=== PATIENT | female | born 1990 | race Caucasian/White ===

== ENCOUNTER 2019-02-07 04:40 | Outpatient (CLI) | payer MEDICAID, SELFPAY ==
[2019-02-07 05:50] VITALS: BMI 43.2
[2019-02-07 06:11] LABS: Absolute Lymphocyte Count 2.33 X10^3/uL (0.83-4.51); Absolute Neutrophil Count 8.1 X10^3/uL (2.0-7.7); Basophil# 0.04 X10^3/uL; Basophil% 0.3 % (0-1); Eosinophil# 0.19 X10^3/uL; Eosinophils% 1.6 % (0-5); Hematocrit 37.7 % (37-47); Hemoglobin 12.1 g/dL (12.0-15.0); Lymphocyte # 2.33 X10^3/ul (4.0); Mean Corp Hgb Conc 32.1 g/dL (32-36); Mean Corpuscular Hgb 28.3 pg (27.0-32.0); Mean Corpuscular Volume 88.3 fL (81-99); Mean Platelet Vol. 12.1 fl (6.2-12.0); Monocyte# 0.93 X10^3/uL; NRBC Flagged by Analyzer 0 % (0-5); Neutrophil # 8.05 X10^3/uL (2.7-7.7); Neutrophil % 69.3 % (47-70); Platelet Count 182 K/mm3 (150-450); RBC Distribution Width CV 14.7 % (11.6-14.6); RBC Distribution Width SD 46.6 fl (35.1-43.9); Red Blood Count 4.27 M/mm3 (4.2-5.4); White Blood Count 11.6 K/mm3 (4.4-11.0)
[2019-02-07 06:21] LABS: International Normalized Ratio 0.9; Prothrombin Time (Protime)PT. 12.3 SECONDS (11.7-14.9)
[2019-02-07 06:22] LABS: Fibrinogen 463 mg/dl (203-444); Partial Thromboplast Time 26.9 Seconds (24.1-36.2)
[2019-02-07 06:56] LABS: Color, Urine Yellow (Yellow); Glucose, Dipstick Normal (Normal); Ketone-Dipstick 5 mg/dl (Negative); Leukocyte Esterase-Dipstick 25 /ul (Negative); Nitrite-Dipstick Negative (Negative); Occult Blood-Urine Negative /ul (Negative); Protein-Dipstick Negative (Negative); Urine Bilirubin Dipstick Negative (Negative); Urine Clarity Sl. Cloudy (Clear); Urine Urobilinogen Normal (Normal)
--- NOTE | 2019-02-07 08:17 | OB.TRI.NOTE ---
- Problem List (1) Abdominal pain affecting Status: Acute (2) 38 weeks gestation of Status: Acute (3) Primiparous Status: Acute History of Present Illness Date of Service: 02/07/19 Was patient seen by the physician?: Yes Reason For Visit: R/O LABOR History of Present Illness: Patient is a primipara at 38 weeks who presented to triage with abdominal pain. She said she had centrally located abdominal pain that started overnight that was radiating down towards her pubic bone. The pain was initially constant for about 2 hours. Now the pain has resolved. She occasionally will still feel the pain every now and then, and this pain will last a few seconds and then resolve on its own. She denies fevers, chills, nausea, vomiting, difficulty eating, diarrhea, constipation, urinary symptoms, vaginal bleeding, vaginal discharge, loss of fluid. Good movement. Allergies No Known Allergies Allergy (Verified 02/07/19 06:10) Laboratory Studies: Laboratory Tests 02/07/19 02/07/19 02/07/19 Range/Units 06:40 05:50 05:50 WBC 11.6 H (4.4-11.0) K/mm3 RBC 4.27 (4.2-5.4) M/mm3 Hgb 12.1 (12.0-15.0) g/dL Hct 37.7 (37-47) % MCV 88.3 (81-99) fL MCH 28.3 (27.0-32.0) pg MCHC 32.1 (32-36) g/dL RDW Std Deviation 46.6 H (35.1-43.9) fl RDW Coeff of Eliana 14.7 H (11.6-14.6) % Plt Count 182 (150-450) K/mm3 MPV 12.1 H (6.2-12.0) fl Immature Gran % (Auto) 0.800 (0.0-0.9) % Neut % (Auto) 69.3 (47-70) % Lymph % (Auto) 20.0 (19-41) % [place] % (Auto) 8.0 (0-10) % Eos % (Auto) 1.6 (0-5) % Baso % (Auto) 0.3 (0-1) % Absolute Neuts (auto) 8.1 H (2.0-7.7) X10^3/uL Absolute Lymphs (auto) 2.33 (0.83-4.51) X10^3/uL Nucleated RBC % 0 (0-5) % PT 12.3 (11.7-14.9) SECONDS INR 0.9 APTT 26.9 (24.1-36.2) Seconds Fibrinogen 463 H (203-444) mg/dl Urine Color Yellow (Yellow) Urine Clarity Sl. Cloudy (Clear) Urine pH 6.0 (5.0 - 8.0) Ur Specific [place] 1.020 (1.002-1.030) Urine Protein Negative (Negative) mg/dl Urine Glucose (UA) Normal (Normal) mg/dl Urine Ketones 5 H (Negative) mg/dl Urine Occult Blood Negative (Negative) /ul Urine Nitrite Negative (Negative) Urine Bilirubin Negative (Negative) mg/dL Urine Urobilinogen Normal (Normal) mg/dl Ur Leukocyte Esterase 25 H (Negative) /ul Physical Exam General: Alert, No apparent distress, - - Comfortable Abdomen: Soft, Non Tender, - - Gravid Neurological: Neuro grossly intact Cervix Dilation (cm): 1 - per RN NST - FHR Rate Baby A Baseline: 120 Variability:: Moderate Accelerations:: 15 x 15 Decelerations:: None NST Reactive:: Yes Uterine Activity:: Occasional ctx's and irritability Impression/Plan - Pain now resolved - CBC, coags, UA reviewed - NST reactive - No regular ctx's on toco - Abd exam benign - D/c home w/ follow up in the office in 2 days
== END 2019-02-07 08:15 | disposition home or self-care (01) ==
LOC: WPOUT 05:18 → WP 05:19
PROVIDERS: Family Provider Radiology Diagnostic Radiology; PCP Radiology Diagnostic Radiology; Visit Provider Obstetrics & Gynecology
DX: O26.893 Other specified pregnancy related conditions, third trimester (principal); R10.9 Unspecified abdominal pain; Z3A.38 38 weeks gestation of pregnancy
CPT/HCPCS: 81002; 85025; 85384; 85610; 85730; 99218; G0378

== ENCOUNTER 2019-02-07 21:35 | Outpatient (CLI) | payer MEDICAID, SELFPAY ==
[2019-02-07 05:50] VITALS: BMI 43.2
[2019-02-07 22:24] VITALS: BMI 43.3
--- NOTE | 2019-02-09 08:06 | OB.TRI.NOTE ---
- Problem List (1) Rectal pain Status: Acute (2) 39 weeks gestation of Status: Acute History of Present Illness Date of Service: 02/07/19 Reason For Visit: RULE OUT LABOR Date of Service: 02/07/19 Final POLINA: 02/13/19 Gestational age: 39 Weeks and 3 Days History of Present Illness: Pt presented to outside hospital with rectal pain after constipation. Her rectal pain had improved and she was transferred to our labor and delivery for further work-up. No regular contractions, vaginal bleeding, loss of fluid. Good movement. She notes a history of hemorrhoids. Allergies No Known Allergies Allergy (Verified 02/07/19 22:25) NST - FHR Rate Baby A Baseline: 135 Variability:: Moderate Accelerations:: 15 x 15 Decelerations:: Variable NST Reactive:: Yes Uterine Activity:: Occasional ctx's Impression/Plan Transferred from OSH for rectal pain w/ h/o constipation and hemorrhoids Rectal pain improved and reviewed what to use for hemorrhoids Has isolated decel on monitoring, so prolonged monitoring after Has follow up in office in 2 days
== END 2019-02-08 00:29 | disposition home or self-care (01) ==
LOC: WPOUT 21:45 → OBT 21:45
PROVIDERS: Family Provider Radiology Diagnostic Radiology; PCP Radiology Diagnostic Radiology; Referring Provider Obstetrics & Gynecology; Visit Provider Obstetrics & Gynecology
DX: O26.893 Other specified pregnancy related conditions, third trimester (principal); K62.89 Other specified diseases of anus and rectum; Z3A.39 39 weeks gestation of pregnancy
CPT/HCPCS: 59025; 59050; 81002; 85025; 85384; 85610; 85730; 94760; 99218; G0378

== ENCOUNTER 2019-02-09 17:45 | Inpatient (IN) | payer MEDICAID, SELFPAY ==
[2019-02-09 18:20] VITALS: BMI 40.1
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
[2019-02-09 18:52] LABS: ROM Internal Control Test YES-OK TO RESULT pt. (Internal QC); ROM Patient Test Negative (Negative)
[2019-02-09] MEDS: Lactated Ringers 1,000 ML 50 ML IV (19:35)
[2019-02-09 19:54] LABS: Absolute Lymphocyte Count 1.89 X10^3/uL (0.83-4.51); Absolute Neutrophil Count 7.7 X10^3/uL (2.0-7.7); Basophil# 0.03 X10^3/uL; Basophil% 0.3 % (0-1); Eosinophil# 0.06 X10^3/uL; Eosinophils% 0.6 % (0-5); Hemoglobin 12.3 g/dL (12.0-15.0); Lymphocyte # 1.89 X10^3/ul (4.0); Lymphocyte % 17.7 % (19-41); Mean Corp Hgb Conc 33.2 g/dL (32-36); Mean Corpuscular Hgb 28.4 pg (27.0-32.0); Mean Corpuscular Volume 85.5 fL (81-99); Mean Platelet Vol. 12.1 fl (6.2-12.0); Monocyte# 0.94 X10^3/uL; Monocyte% 8.8 % (0-10); NRBC Flagged by Analyzer 0 % (0-5); Neutrophil # 7.69 X10^3/uL (2.7-7.7); Platelet Count 198 K/mm3 (150-450); RBC Distribution Width CV 14.7 % (11.6-14.6); RBC Distribution Width SD 45.1 fl (35.1-43.9); Red Blood Count 4.33 M/mm3 (4.2-5.4); White Blood Count 10.7 K/mm3 (4.4-11.0)
[2019-02-09] MEDS: miSOPROStol 25 MCG TABLET PO (21:03)
[2019-02-10] MEDS: miSOPROStol 25 MCG TABLET PO (01:08)
[2019-02-10] MEDS: Nalbuphine 10 MG/ML Ampul IV (01:38)
[2019-02-10] MEDS: Lactated Ringers 500 ML 999 ML IV ×2 (02:40→05:30)
[2019-02-10] MEDS: fentaNYL-bupivacaine (epidural) 100 ML BAG EPIDURAL ×2 (06:37→10:46)
[2019-02-10] MEDS: Oxytocin 30 units/NS 500 ml 30 UNITS/500 ML IV.SOLN IV (07:20)
--- NOTE | 2019-02-10 10:18 | PCM.PN.BLA ---
Progress Note Cvx 9/100/0. AROM performed for clear-blood tinged fluid.
[2019-02-10] MEDS: Lactated Ringers 1,000 ML 200 ML IV (11:15)
[2019-02-10] MEDS: Oxytocin 30 units/NS 500 ml 30 UNITS/500 ML IV.SOLN 334 UNITS IV (12:36)
--- NOTE | 2019-02-10 12:57 | OP.PCM_ITS ---
Problem List (1) 40 weeks gestation of Status: Acute (2) Primiparous Status: Acute (3) Abdominal pain Status: Acute (4) Intellectual disability Status: Acute Report of Operation Date of Procedure: 02/10/19 Pre-Operative Diagnosis: 40 week gestation, primiparous patient, maternal discomfort, intellectual disability Post-Operative Diagnosis: As above Surgery/Procedure Performed:: Description of Surgical Findings:: Viable female infant in cephalic presentation. Meconium stained fluid. Intact and normal appearing placenta with a 3 VC. Type of Anesthesia:: Epidural Special Medications: None Specimen's removed: Placenta Drains: [place] Estimated Blood Loss (mL): 250 Description of Procedure: Patient complete and pushing. Head, anterior shoulder, posterior shoulder, followed by body were delivered without any force or delay. Viable female infant was delivered atraumatically and placed on maternal abdomen. Cord was clamped and cut after a 60 sec delay. Cord blood was obtained. Placenta was delivered with fundal massage. The placenta was noted to be intact and normal- appearing with a three-vessel cord. The uterus was explored x1. A first-degree vaginal laceration was repaired with 3-0 Vicryl in usual fashion. Fundus was firm and bleeding hemostatic. Grafts/Implants Used: None - Complications None - Admit VTE Documentation VTE Present on Admission: No Vaginal Delivery Maternal Presentation: Elective Induction Method of Induction: Pitocin, Cytotec Amniotic Membrane Rupture Type: Artificial Amniotic Fluid Description: Lightly stained meconium Surgery/ Procedure Performed: Spontaneous Vaginal Delivery Type of Anesthesia: Epidural Presentation: Vertex Placental Delivery Description: Expressed Cord Vessel Description: 3 Vessels Cord Entanglement: None A gender: Female Episiotomy Description: None Laceration: 1st degree Medications given after delivery: IV Pitocin Complications: None
[2019-02-10] MEDS: Oxytocin 10 UNITS/ML Vial IM (13:49)
[2019-02-10] MEDS: 0.9% Saline Lock 10 ML Syringe IV (13:54)
[2019-02-10 18:13] VITALS: BP 131/79; PULSE 112; RESP 18; TEMP 36.7
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
--- NOTE | 2019-02-10 18:30 | CASEMGMT ---
Social Work Consult: Concerns with transportation options for family members. Informant: Charge Nurse Met with Mother of baby (MOB), Father of baby (FOB) and maternal grandmother in room along with charge nurse as per nursing staff multiple family members were planning to stay the night as they were unable to afford gas money to drive back and forth. When charge nurse broached topic of family members staying, Maternal grandmother stating now to be planning to go home on this day and that FOB will be only family staying the night. This professor of social work attempted to provide transportation resources, but they were declined. Social work to continue to follow for complete assessment. Confirmed with nursing staff that MOB and infant to stay until Tuesday. Mary Dupree MSW, [facility]
--- NOTE | 2019-02-10 19:52 | NURSING ---
While moving pt. to new room, pt. verbalized that she was excited for a the tote because she has so many clothes for infant. Reports her dresser is full and she has a couple other boxes of clothing, reports getting them from a friend or relative. Pt. also had made statements earlier in shift when discussing different types of formula - was concerned over using Similac as she reports she was allergic to it as a baby. Also states WIC will have her using Azar formula and discussed with pt. that the different brands are similar as long as you were looking at similar types of formula. During discussion, pt. inferred that she had already purchased some of the Jasper's formula as that is what [place] will have. Pt. and FOB very excited over infant, very eager to hold and take care of her and eager to ask questions. Pt's mother was eager to show pt. and FOB how to change a diaper, and did a good job of explaining a diaper change to them, although pt. and FOB appeared fairly distracted at the time.
[2019-02-10 20:45] VITALS: BP 124/83; PULSE 116; RESP 16; TEMP 37.3
[2019-02-11 00:15] VITALS: BP 132/79; PULSE 99; RESP 20; TEMP 37.1
[2019-02-11 03:00] VITALS: BP 106/55; PULSE 102; RESP 18; TEMP 37.1
[2019-02-11] MEDS: Ibuprofen 600 MG Tablet PO ×2 (05:26→23:38)
[2019-02-11 08:00] VITALS: BP 106/57; PULSE 89; RESP 14; TEMP 36.7
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
--- NOTE | 2019-02-11 10:25 | PCM.PN.OB ---
Patient Problems: Active and Suspected Problems (Last Updated 02/09/19 @ 18:32 by Trixie Lee DO) 40 weeks gestation of (Acute) Primiparous (Acute) Abdominal pain (Acute) Intellectual disability (Acute) Subjective: Pt doing well. Pain well controlled. Ambulating and voiding without difficulty. Tolerating regular diet without nausea or vomiting. Lochia normal. She is bottlefeeding. She denies lightheadedness, dizziness, chest pain, shortness of breath, leg pain. - Physical Exam Vitals/I&O's: Vital Signs Temp Pulse Resp BP 98.0 F 89 14 106/57 L 02/11/19 08:00 02/11/19 08:00 02/11/19 08:00 02/11/19 08:00 Oxygen Delivery Method Room Air Weight: 249 lb Body Mass Index (BMI) 40.1 Intake and Output for Last 24 Hours 02/09/19 02/10/19 02/11/19 23:59 23:59 23:59 Intake Total 3034.01 / 3034.01 Output Total 1000 / 1000 200 / 200 Balance 2034.01 / 2034.01 -200 / -200 General: Alert, No apparent distress HEENT: Atraumatic Abdomen: Soft, Non Tender, - - FF@U-1 Extremities: No edema, No Calf Tenderness Skin: No rashes Neurological: Neuro grossly intact Current Medications Acetaminophen (Tylenol) 1,000 mg PO Q8H PRN PRN PRN Reason: Pain Score 1-3/10 Bisacodyl (Dulcolax) 10 mg RECTAL UD PRN PRN Reason: If no BM Dibucaine (Dibucaine) 1 applic TOPICAL TID PRN PRN; Protocol PRN Reason: Discomfort Hydrocortisone (Hytone) 1 applic TOPICAL TID PRN PRN; Protocol PRN Reason: Discomfort Ibuprofen (Motrin) 600 mg PO Q6H PRN PRN PRN Reason: Pain Score 1-3/10 Last Admin: 02/11/19 05:26 Dose: 600 mg Documented by: Methylergonovine Maleate (Methergine) 0.2 mg IM X1 PRN PRN Reason: Excess bleeding/uterine atony Ondansetron HCl (Zofran) 4 mg IV Q4H PRN PRN PRN Reason: Nausea Oxytocin (Pitocin) 10 units IM X1 HEMANTH Last Admin: 02/10/19 13:49 Dose: 10 units Documented by: Senna/Docusate Sodium (Senokot-S, Kaitlin-Colace) 1 - 2 tablet PO DAILY PRN PRN PRN Reason: Constipation Simethicone (Mylicon) 80 mg PO PCHS PRN PRN Reason: Indigestion/Stomach pain Sodium Chloride () 5 - 15 ml IV UD PRN PRN Reason: SALINE FLUSH Last Admin: 02/10/19 13:54 Dose: 10 ml Documented by: Medical Necessity - Tobacco Use Smoking Status: Never smoker Assessment/Plan All Active Problems (Last Updated 02/09/19 @ 18:32 by Trixie Lee DO) Abdominal pain affecting (Acute) 38 weeks gestation of (Acute) Primiparous (Acute) Rectal pain (Acute) 39 weeks gestation of (Acute) 40 weeks gestation of (Acute) Primiparous (Acute) Abdominal pain (Acute) Intellectual disability (Acute) PPD#1 s/p - Doing well - Bottle feeding - Social work consult - Dispo: Routine care. Anticipate d/c home tomorrow
[2019-02-11 11:55] VITALS: BP 124/75; PULSE 75; RESP 14; TEMP 36.9
[2019-02-11 20:00] VITALS: BP 118/81; PULSE 91; RESP 16; TEMP 36.8
[2019-02-12 02:00] VITALS: BP 119/80; PULSE 70; RESP 16; TEMP 37.2
[2019-02-12 08:00] VITALS: BP 123/79; PULSE 87; RESP 24; TEMP 36.4
--- NOTE | 2019-02-12 08:23 | PCM.PN.OB ---
Patient Problems: Active and Suspected Problems (Last Updated 02/09/19 @ 18:32 by Trixie Lee DO) 40 weeks gestation of (Acute) Primiparous (Acute) Abdominal pain (Acute) Intellectual disability (Acute) Subjective: Seen at bedside, doing well. Patient reports good pain control. Lochia mild. Voiding without difficulty. Bottlefeeding. - Physical Exam Vitals/I&O's: Vital Signs Temp Pulse Resp BP 98.9 F 70 16 119/80 02/12/19 02:00 02/12/19 02:00 02/12/19 02:00 02/12/19 02:00 Oxygen Delivery Method Room Air Weight: 112.945 kg Body Mass Index (BMI) 40.1 Intake and Output for Last 24 Hours 02/10/19 02/11/19 02/12/19 23:59 23:59 23:59 Intake Total 3034.01 / 3034.01 Output Total 1000 / 1000 200 / 200 Balance 2034.01 / 2034.01 -200 / -200 General: Alert, Oriented x3 Abdomen: Soft, Non Tender, Non-Distended, - - fundus firm Extremities: No Calf Tenderness Current Medications Acetaminophen (Tylenol) 1,000 mg PO Q8H PRN PRN PRN Reason: Pain Score 1-3/10 Bisacodyl (Dulcolax) 10 mg RECTAL UD PRN PRN Reason: If no BM Dibucaine (Dibucaine) 1 applic TOPICAL TID PRN PRN; Protocol PRN Reason: Discomfort Hydrocortisone (Hytone) 1 applic TOPICAL TID PRN PRN; Protocol PRN Reason: Discomfort Ibuprofen (Motrin) 600 mg PO Q6H PRN PRN PRN Reason: Pain Score 1-3/10 Last Admin: 02/11/19 23:38 Dose: 600 mg Documented by: Methylergonovine Maleate (Methergine) 0.2 mg IM X1 PRN PRN Reason: Excess bleeding/uterine atony Ondansetron HCl (Zofran) 4 mg IV Q4H PRN PRN PRN Reason: Nausea Oxytocin (Pitocin) 10 units IM X1 HEMANTH Last Admin: 02/11/19 20:51 Dose: Not Given Documented by: Senna/Docusate Sodium (Senokot-S, Kaitlin-Colace) 1 - 2 tablet PO DAILY PRN PRN PRN Reason: Constipation Simethicone (Mylicon) 80 mg PO PCHS PRN PRN Reason: Indigestion/Stomach pain Sodium Chloride () 5 - 15 ml IV UD PRN PRN Reason: SALINE FLUSH Last Admin: 02/10/19 13:54 Dose: 10 ml Documented by: Medical Necessity - Tobacco Use Smoking Status: Never smoker Assessment/Plan All Active Problems (Last Updated 02/09/19 @ 18:32 by Trixie Lee DO) Abdominal pain affecting (Acute) 38 weeks gestation of (Acute) Primiparous (Acute) Rectal pain (Acute) 39 weeks gestation of (Acute) 40 weeks gestation of (Acute) Primiparous (Acute) Abdominal pain (Acute) Intellectual disability (Acute) PPD#2, doing well routine care pain mgmt social work consult prior to dc home
--- NOTE | 2019-02-12 08:28 | DCINST_ITS ---
Discharge Diet: No Restrictions Discharge Activity: Return to Normal Activity, May not drive while taking narcotic pain medications., May Shower May resume sexual activity in: 4-6 weeks Additional Activity Instructions:: Nothing in the vagina for 4-6 weeks. You may return to work/school in 6 weeks. Call your doctor if your incision/area has: Continuous Slow Oozing, Sudden Increased Bleeding, Increased Pain/ Swelling, Increased Redness, Foul Smelling Discharge Additional Instructions: If you experience any of the following, contact your healthcare provider. * Bleeding that soaks a pad every hour for 2 hours * Fever 100.4 or higher * Unrelieved incision or abdominal pain * Swelling, redness, discharge or bleeding from your incision or episiotomy site * Your incision begins to separate * Problems urinating (including inability to urinate or burning while urinating). * Visual changes * Severe headache * Flu-like symptoms * Pain or redness in one of both of your breasts * Pain, warmth, tenderness or swelling in your legs, especially the calf area * Frequent nausea and vomiting * Symptoms of depression or anxiety If you experience any of the following, call 911 or go to the nearest Emergency Room. * Chest pain * Problems breathing * Seizure activity * Partial or complete paralysis of a body part, slurred speech, weakness or drooping of the face, or a sudden inability to walk or hold your balance Allergies/Adverse Reactions: Allergies No Known Allergies Allergy (Verified 02/09/19 19:14) Medications to take at Discharge Albuterol Aerosols [Ventolin Aerosols] 2.5 mg INHALATION Q6H PRN PRN 02/07/19 Docosahexanoic Acid [ Dha] 200 mg PO DAILY 02/07/19 Ibuprofen [Motrin] 600 mg PO Q6H PRN PRN #30 tab 02/12/19 The following prescriptions were given: Ibuprofen [Motrin] 600 mg PO Q6H PRN PRN #30 tab PRN Reason: Pain Score 1-310 Transmission Status: Pending to [facility]/pharmacy #[id number] When: Call to make an appointment with your doctor in 1-2 weeks and then in 6 weeks. Please Follow Up With: Trixie Lee DO Primary Care Physician: Obdulia Foote MD [Primary Care Provider] - Test Results: Test results from this visit will be discussed in further detail at your follow- up appointment, if applicable.
[2019-02-12 14:30] VITALS: BP 127/85; PULSE 98; RESP 16; TEMP 37.5
== END 2019-02-12 14:35 | disposition home or self-care (01) | DRG 560 ==
PROVIDERS: Admitting Provider Obstetrics & Gynecology; Family Provider Radiology Diagnostic Radiology; PCP Radiology Diagnostic Radiology; Referring Provider Obstetrics & Gynecology; Visit Provider Obstetrics & Gynecology
DX: O48.0 Post-term pregnancy (principal); Z3A.40 40 weeks gestation of pregnancy; O77.0 Labor and delivery complicated by meconium in amniotic fluid; O71.4 Obstetric high vaginal laceration alone; O99.344 Other mental disorders complicating childbirth; F79 Unspecified intellectual disabilities; O26.893 Other specified pregnancy related conditions, third trimester; K62.89 Other specified diseases of anus and rectum; Z37.0 Single live birth
CPT/HCPCS: 36415; 59025; 59050; 81002; 84112; 85025; 85384; 85610; 85730; 86850; 86900; 86901; 94760; 99218; J7120; A4216; G0378

== ENCOUNTER 2019-04-18 16:52 | Observation (INO) | payer MEDICAID, SELFPAY ==
[2019-04-18 16:53] VITALS: BP 119/76; PULSE 72; RESP 15; TEMP 37; O2SAT 100; BMI 42.0
--- NOTE | 2019-04-18 16:55 | NURSING ---
NO OLD EKGS
--- NOTE | 2019-04-18 17:31 | EKG12_ITS ---
Test Reason : CP Blood Pressure : / mmHG Vent. Rate : 074 BPM Atrial Rate : 074 BPM P-R Int : 110 ms QRS Dur : 084 ms QT Int : 390 ms P-R-T Axes : 059 067 044 degrees QTc Int : 432 ms Sinus rhythm with sinus arrhythmia with short NC Otherwise normal ECG Confirmed by CYNTHIA NICHOLS, LEIA ([id number]), editor news HARISH GARCIA ([id number]) on 05/02/2019 9:49:27 AM Referred By: ALDEN Confirmed By:LEIA MARIE MD
[2019-04-18 18:04] VITALS: BP 129/86; PULSE 59; RESP 12; O2SAT 100
--- NOTE | 2019-04-18 18:18 | US_ITS ---
STUDY: ABDOMINAL ULTRASOUND - RIGHT UPPER QUADRANT REASON FOR VISIT: Female, 28 years old RUQ PAIN RADIATES TO CHEST AND BACK TECHNIQUE: Ultrasound evaluation of the right upper quadrant was performed with real-time and static sorenson-scale imaging. TECHNICAL QUALITY: Adequate. COMPARISON: None. FINDINGS: Liver: The liver measures 17.7 cm. There is normal echogenicity of the liver. The bile ducts are within normal limits. There is hepatic color flow. The direction of portal flow is hepatopetal. There is no demonstrated mass lesion. Gallbladder: Normal distended gallbladder. The gallbladder wall measures 3 mm. There is a negative sonographic Foote''s sign. There is mild pericholecystic fluid. There are gallstones. Common Bile Duct (C.B.D.): The common bile duct measures 7 mm. Pancreas: Normal size of the head, body and tail of the pancreas. There is normal echogenicity of the pancreas. There is no demonstrated pancreatic mass or cyst. Right Kidney: Normal size of the right kidney. The right kidney measures 9.6 x 4.3 x 3.9 cm. Normal renal cortex. The right cortex measures 1.1 cm. There is no demonstrated renal mass or cyst. There is no right hydronephrosis. US/Gallbladder IMPRESSION: Cholelithiasis. Trace pericholecystic fluid. Borderline common bile duct. Electronically Signed: Herber Johnson DO at 19:08 EST Tel [phone], Service support ,
[2019-04-18] MEDS: Ondansetron 4 MG/2 ML Vial IV (18:31)
[2019-04-18 18:48] LABS: Absolute Lymphocyte Count 1.12 X10^3/uL (0.83-4.51); Absolute Neutrophil Count 5.5 X10^3/uL (2.0-7.7); Basophil# 0.04 X10^3/uL; Basophil% 0.6 % (0-1); Eosinophil# 0.05 X10^3/uL; Eosinophils% 0.7 % (0-5); Hematocrit 45.8 % (37-47); Hemoglobin 14.2 g/dL (12.0-15.0); Lymphocyte # 1.12 X10^3/ul (4.0); Lymphocyte % 15.8 % (19-41); Mean Corpuscular Hgb 27.2 pg (27.0-32.0); Mean Corpuscular Volume 87.7 fL (81-99); Mean Platelet Vol. 11.6 fl (6.2-12.0); Monocyte# 0.35 X10^3/uL; Monocyte% 4.9 % (0-10); NRBC Flagged by Analyzer 0 % (0-5); Neutrophil # 5.52 X10^3/uL (2.7-7.7); Neutrophil % 77.9 % (47-70); Platelet Count 269 K/mm3 (150-450); RBC Distribution Width CV 14.3 % (11.6-14.6); Red Blood Count 5.22 M/mm3 (4.2-5.4); White Blood Count 7.1 K/mm3 (4.4-11.0)
--- NOTE | 2019-04-18 18:51 | ED.RN ---
DUE TO PT RATING PAIN 2/10 SHE DID NOT WANT MORPHINE AT THIS TIME.
[2019-04-18 19:00] VITALS: BP 112/75; PULSE 87; RESP 19; O2SAT 97
[2019-04-18 19:05] LABS: AST(SGOT) 185 U/L (15-37); Alanine Aminotransfer ALT/SGPT 172 U/L (13-56); Albumin, Serum 3.4 g/dL (3.2-5.0); Alkaline Phosphatase 213 U/L (45-117); Anion Gap 5 (5-15); BUN 11 mg/dL (7-18); BUN/Creat Ratio 12.1 RATIO (10-20); Bilirubin, Direct 0.61 mg/dL (0.00-0.30); Calcium,Total 9.5 mg/dL (8.5-10.1); Chloride 107 mmol/L (98-107); Creatinine, Serum 0.91 mg/dL (0.55-1.02); EST Glomerular Filtration Rate 79 mL/min (>60); Est Glom Filt Rate - Afr Amer 96 mL/min (>60); Globulin 4.2 g/dL (2.2-4.2); Glucose 116 mg/dL (74-106); Lipase 192 U/L (73-393); Protein, Total 7.6 g/dL (6.4-8.2); Sodium Level 140 mmol/L (136-145)
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
--- NOTE | 2019-04-18 20:00 | DCINST_ITS ---
Discharge Diet: Light diet - advance as tolerated - if you have questions about your diet instructions, please talk to you doctor. Discharge Activity: May Not Drive - for 1 week or while taking narcotic pain medicine. May shower in (days): 1 Lifting Restrictions: 10 pounds Call your doctor if your incision/area has: Continuous Slow Oozing, Sudden Increased Bleeding, Increased Pain/ Swelling, Increased Redness, Foul Smelling Discharge Call your doctor if you observe: Fever of 101 or Higher Suture Line Care: Avoid Pulling/Pushing, Avoid Pinching/Bending Additional Dressing/Incision Instructions:: Change or remove dressing in 4 days. Leave steri-strips in place for 1 week. Allergies/Adverse Reactions: Allergies No Known Allergies Allergy (Verified 04/18/19 18:09) Medications to take at Discharge Albuterol Aerosols [Ventolin Aerosols] 2.5 mg INHALATION Q6H PRN PRN 02/07/19 Docosahexanoic Acid [ Dha] 200 mg PO DAILY 02/07/19 Ibuprofen [Motrin] 600 mg PO Q6H PRN PRN #30 tab 02/12/19 Famotidine 40 mg PO DAILY 04/18/19 Primary Care Physician: Obdulia Foote MD [Primary Care Provider] - Test Results: Test results from this visit will be discussed in further detail at your follow- up appointment, if applicable. Please Follow Up With: Roman Domingo MD - [phone] When: Call to make an appointment to be seen in about 10 days.
--- NOTE | 2019-04-18 20:07 | ED.VISSUMM ---
- ER Visit Summary Date of Service: 04/18/19 Chief Complaint: Chest pain, back pain History of Present Illness: The patient is a 28 F who presents with chest and back pain. She said this for about 8 hours. She describes sharp pains in the middle part of her chest and wraps around the right side to her back. Nothing makes it better or worse. She has felt nausea and lightheaded. She has had this for months but it is worse today. Family is concerned about her gallbladder. She denies any history of abdominal surgeries in the past. She takes no blood thinning medications. Physical Examination: Vital signs reviewed. HEENT exam unremarkable. Heart is regular rate and rhythm without murmurs. Lungs are clear to auscultation. Abdomen is soft with tenderness in the right upper quadrant. There is no guarding or rebound tenderness. Extremities reveal no edema. Skin exam normal. Neurologic exam normal. Test Results: White blood cell count normal. Glucose 116. ALT 172, AST 185. Total bilirubin 0.9, direct bilirubin 0.61. Right upper quadrant ultrasound reveals cholelithiasis with trace pericholecystic fluid. Common bile duct is 7 mm. Emergency Department Course and Treatment: The patient was given morphine and Zofran with improvement of symptoms. I do have a concern for acute cholecystitis. I discussed with Dr. Domingo and he will evaluate the patient for admission. I will give her a dose of IV Zosyn Treatment Plan: [] Disposition: Admit Impression: Acute cholecystitis This note was generated with [employer] dictation software. It may contain incorrect words, spelling, and punctuation that were not noted in review of the chart prior to signing ED Disposition - Plan for ED Patient: Referrals: Obdulia Foote MD [Primary Care Provider] -
[2019-04-18 21:20] VITALS: RESP 20; BMI 35.4; BMI 35.5
[2019-04-18 22:00] VITALS: BP 118/77; PULSE 64; RESP 20; TEMP 36.5; O2SAT 94
[2019-04-18] MEDS: Lactated Ringers 1,000 ML 100 ML IV (22:00)
[2019-04-18 23:08] LABS: Internal QC Validated? YES +Cl - CLEAR BKGD; Pregnancy, Serum, hCG Quali. NEGATIVE Negative
[2019-04-18] MEDS: Enoxaparin 40 MG/0.4 ML Syringe SC (23:21)
[2019-04-19] VITALS (18 sets, daily range): BP systolic 103–141; BP diastolic 60–95; PULSE 49–74; RESP 16; TEMP 36.1–36.8; O2SAT 92–100; BMI 35.4
--- NOTE | 2019-04-19 05:35 | PN.SURG_ITS ---
Subjective: Patient sleeping soundly. Denies pain this morning - Physical Exam Vitals/I&O's: Vital Signs Temp Pulse Resp BP Pulse Ox 97.5 F L 53 L 16 107/60 98 04/19/19 03:47 04/19/19 03:47 04/19/19 03:47 04/19/19 03:47 04/19/19 03:47 Oxygen Delivery Method Room Air Weight: 219 lb 12.814 oz Body Mass Index (BMI) 35.4 Intake and Output for Last 24 Hours 04/17/19 04/18/19 04/19/19 23:59 23:59 23:59 Intake Total 100 / 120 Balance 100 / 120 Abdomen: Soft, Non Tender Laboratory Results 04/18/19 18:30: WBC 7.1, RBC 5.22, Hgb 14.2, Hct 45.8, MCV 87.7, MCH 27.2, MCHC 31.0 L, RDW Std Deviation 46.0 H, RDW Coeff of Eliana 14.3, Plt Count 269, MPV 11.6, Immature Gran % (Auto) 0.100, Neut % (Auto) 77.9 H, Lymph % (Auto) 15.8 L, [place] % (Auto) 4.9, Eos % (Auto) 0.7, Baso % (Auto) 0.6, Absolute Neuts (auto) 5.5, Absolute Lymphs (auto) 1.12, Nucleated RBC % 0 04/18/19 18:30: Sodium 140, Potassium 4.0, Chloride 107, Carbon Dioxide 28.0, Anion Gap 5, BUN 11, Creatinine 0.91, Estim Creat Clear Calc 80.90, Est GFR (MDRD) Af Amer 96, Est GFR (MDRD) Non-Af 79, BUN/Creatinine Ratio 12.1, Glucose 116 H, Calcium 9.5, Total Bilirubin 0.90, Direct Bilirubin 0.61 H, AST 185 H, ALT 172 H, Alkaline Phosphatase 213 H, Troponin I < 0.015, Total Protein 7.6, Albumin 3.4, Globulin 4.2, Lipase 192 04/18/19 22:37: Serum , Qual NEGATIVE Current Medications Acetaminophen (Tylenol) 650 mg PO Q6H PRN PRN PRN Reason: Pain Score 1-10/10 Lactated Ringer's () 1,000 mls @ 100 mls/hr IV .Q10H [facility] Last Admin: 04/18/19 22:00 Dose: 100 mls/hr Documented by: Cefazolin Sodium 2 gm/ Sodium (Chloride) 110 mls @ 150 mls/hr IV X1 ONE Stop: 04/19/19 14:43 Ketorolac Tromethamine (Toradol (Bkc)) 15 mg IV Q6H PRN PRN PRN Reason: Pain Score 1-10/10 Lorazepam (Ativan) 0.5 mg IV Q6H PRN PRN PRN Reason: ANXIETY Ondansetron HCl (Zofran) 4 mg IV Q8H PRN PRN PRN Reason: NAUSEA Medical Necessity - Tobacco Use Smoking Status: Never smoker Tobacco Use: Secondhand Assessment/Plan All Active Problems (Last Updated 02/09/19 @ 18:[address] Trixie Lee, DO) Abdominal pain affecting (Acute) 38 weeks gestation of (Acute) Primiparous (Acute) Rectal pain (Acute) 39 weeks gestation of (Acute) 40 weeks gestation of (Acute) Primiparous (Acute) Abdominal pain (Acute) Intellectual disability (Acute) Plan to proceed with laparoscopic cholecystectomy with cholangiograms pending OR availability. Serum test negative. Roman Domingo M.D., F.A.C.S.
[2019-04-19] MEDS: Lactated Ringers 1,000 ML 100 ML IV ×3 (06:44→17:40)
--- NOTE | 2019-04-19 10:30 | CASEMGMT ---
RN CM WATERWORKS CHIEF ENGINEER CM to room to meet with patient for initial transition planning/care coordination assessment. NADER CHENEY introduced self and role at [facility]. Pt voices understanding and consents to assessment at this time. Pt sitting up in bed in no distress at this time. Brother @ bedside and pt agreeable to him being present during assessment. Pt is A/O at this time and answers all questions appropriately. Care providers, pharmacy, and demographics verified/updated at this time. PCP: Dr Sheba Henderson Specialists: Denies Preferred Pharmacy: [facility] Retail Insurance: [employer]. [facility] does not have a [employer] Prescription Benefit: Yes Living Will/HPOA: States does not have a LW or Healthcare POA, but is interested in talking to SW to complete. States she would like her mom present when SW talks with her. LNOK: MomSelin Living Arrangements: Lives with her mom and step-dad. Has a new-born/2-mo-old baby. Independent. Mom helps with taking care of her baby. Transportation: Pt does not drive. States her mom drives and denies concerns. DME: Denies using any DME and denies needs. HHC/SNF: No history of either. No needs identified. Pt wishes to return home and states has no concerns with going home at time of discharge. CM to follow for any further discharge planning/needs. Pt voices no further concerns/needs at this time. Advised pt to ask for CM if any further questions/concerns/needs arise. Voices understanding. PLAN: Home w/family support SW referral for AD Michelle KELSEY RN, CM
[2019-04-19] MEDS: Cefazolin 2 GM in 0.9% Normal Saline 100 ML IV (14:15)
--- NOTE | 2019-04-19 14:45 | RAD_ITS ---
CLINICAL HISTORY: Female, 28 years old. Cholecystitis PROCEDURE: CHOLANGIOGRAM - intraoperative CONSENT: SEDATION: FLUOROSCOPY TIME (if supplied): (19 seconds) minutes/seconds Placement of the catheter and the procedure were performed by: Operating surgeon Technique: Utilizing fluoroscopic guidance intraoperative cholangiogram was performed followed by acquisition of images in the anterior projection Findings: The images submitted demonstrate a rounded filling defect creating meniscus sign in the distal common bile duct suggesting intraductal stone. There is no filling of the gallbladder consistent with cholecystectomy. Would recommend correlation with surgical notes for more complete information. RAD/Cholangiogram/ O R,Initial IMPRESSION: Findings suspicious for distal common bile duct stone status post cholecystectomy however would recommend correlation with surgical notes for more complete information Electronically Signed: Dominic Carlisle MD at 16:10 EST , Service support ,
--- NOTE | 2019-04-19 15:05 | GALL_PTH ---
PATIENT: ZACARIAS OLGUIN LOC: MS3 U#:[id number] AGE/SX: ROOM: MS308 RE04/18/[address]: Dr. Roman Domingo MD : 1990 BED: 1 DIS: 04/20/2019 SPEC #: [id number] RECD: 04/19/19 17:18 STATUS: ARLENE MOLINA #: [id number] TD: 04/19/19 15:[address]: Roman Domingo DEPT: SURGICAL PATHOLOGY RECD BY: Luan Espinosa ENTERED: 04/20/19 11:09 SP TYPE: HANNAH JENKINS DR: MD Sheba Hsu, CIRCULATION ANALYST-C Tissues: Gallbladder, NOS Procedures: Surgery Specimen Level III HEADER OPERATION: Laparoscopic cholecystectomy with IOC PRE-OP DIAGNOSIS: Cholelithiasis with chronic cholecystitis TISSUE SUBMITTED: Gallbladder MICROSCOPIC DIAGNOSIS Gallbladder, cholecystectomy: Chronic cholecystitis and cholelithiasis. A pericystic lymph node with reactive changes. JOSE ANGEL:lise 04/23/19 MICROSCOPIC DESCRIPTION Slides are reviewed. GROSS DESCRIPTION Received is one container labeled with the patient's name and designated gallbladder. The specimen consists of a gallbladder measuring 8.5 cm in length and up to 3 cm in diameter. The external surface is pink-hernandez, smooth and glistening for the most part. Focally it is granular, hemorrhagic and contains cautery artifact. The gallbladder contains green-yellow mucoid bile and multiple mulberry yellowish-green stones measuring in aggregate 3.5 x 3 x 0.5 cm and 0.3 to 0.5 cm in greatest dimension. The mucosa is bile-stained and without any mass lesions. The gallbladder wall measures up to 0.2 cm in thickness. Also present close to the cystic duct is an ovoid piece of hernandez soft tissue measuring 1 cm in greatest dimension, a possible lymph node. Senior Mobile Solutions Architect sections from the gallbladder and the cystic duct including entire possible lymph node are submitted in one cassette. / JOSE ANGEL:lise 04/20/19 TC:3 CPT: 76209
[2019-04-19] MEDS: Bupivacaine Mpf 0.5% 30 ML VIAL (15:30)
--- NOTE | 2019-04-19 15:42 | PCM.OPRPT ---
Problem List (1) Cholelithiasis with chronic cholecystitis Status: Chronic Qualifiers: Cholelithiasis location: gallbladder Biliary obstruction: without biliary obstruction Qualified Code(s): K80.10 - Calculus of gallbladder with chronic cholecystitis without obstruction Report of Operation Date of Procedure: 04/19/19 Pre-Operative Diagnosis: Chronic cholecystitis cholelithiasis Post-Operative Diagnosis: Chronic cholecystitis cholelithiasis choledocholithiasis Surgery/Procedure Performed:: Laparoscopic cholecystectomy with intraoperative cholangiograms Description of Surgical Findings:: Timeout and informed consent was obtained. 28-year-old female was taken to the operating placement table underwent general endotracheal intubation esthesia. The abdomen sterilely prepped and draped. 0.5% Marcaine was used as a local anesthetic. Throughout the procedure total 30 cc was used. Skin sites were pre-anesthetized. She received 2 g of Ancef intravenously preprocedure. A vertical infraumbilical incision was created holding sutures of 0 Vicryl placed varies needle inserted saline drop test performed the abdomen was insufflated with CO2 to pressure of 12 mmHg pressure. 10 mm trocar was inserted. 10 mm trocar inserted. 10 mm laparoscope inserted. There were no evidence of any trocar injuries. Under under direct inspection 5 mm ports were placed in the epigastric mid abdomen right upper quadrant. The gallbladder was distracted. Peritoneum around the gallbladder was edematous it was dissected free bluntly. The cystic duct lymph node and cystic artery identified clipped proximally and distally transecting it. The hepatocystic angle was fully dissected free identifying a longer cystic duct. A hemo-lock clip was placed on the cystic duct and incision made in the cystic duct and the 14-gauge cholangiogram catheter was inserted fluoroscopically control cholangiograms were obtained demonstrating a meniscus sign at the distal common bile duct and a free-floating stone. There was felt to be at least 2 stones within the common bile duct. After further contemplation and after contacting Dr. Jigar Barbour I elected to leave the stones and defer to an ERCP to be performed tomorrow. 2 hemo-lock clips were placed upon the cystic duct stump prior to transecting it. The gallbladder was I then dissected free from the liver bed it was noted to be partly intrahepatic. Hemostasis was achieved. The gallbladder was placed in a retrieval bag. The right upper quadrant was irrigated and aspirated free of excess fluid. The gallbladder was exited at the umbilicus. The remaining trochars removed under visualization. The abdomen was allowed to deflate of the CO2. The fascia at the umbilicus approximated with interrupted [id number] suture of 0 Vicryl. Skin edges approximated opted for Monocryl subdermal stitches. Steri-Strips and Telfa and OpSite dressings applied. Sponge and instrument and needle counts were reported to the surgeon to be correct. Blood loss minimal. Specimens gallbladder. Drains none. Blood loss minimal. Roman Domingo M.D., F.A.C.S. Type of Anesthesia:: General Anesthesiologist: Shawn Guillermo
[2019-04-19] MEDS: Enoxaparin 40 MG/0.4 ML Syringe SC (18:46)
[2019-04-19] MEDS: Acetaminophen 325 MG Tablet 650 MG PO (21:51)
[2019-04-19] MEDS: Ondansetron 4 MG/2 ML Vial IV (21:52)
[2019-04-20] VITALS (13 sets, daily range): BP systolic 107–132; BP diastolic 66–88; PULSE 51–82; RESP 16–18; TEMP 36.4–37.2; O2SAT 97–100; BMI 35.4
[2019-04-20] MEDS: Morphine 2 MG/ML Syringe IV (00:50)
--- NOTE | 2019-04-20 01:42 | NURSING ---
Addendum entered by Sweta Perez 04/20/19 06:30: 0600 Patient ambulated with stand-by assist 3/4 lap around unit. Original Note: Patient ambulated with stand-by assist in hallway. Back to bed safely. Bed alarm set.
[2019-04-20] MEDS: Lactated Ringers 1,000 ML 100 ML IV ×2 (02:57→14:54)
--- NOTE | 2019-04-20 05:46 | PN.SURG_ITS ---
Subjective: Pt is doing well, not much pain. - Physical Exam Vitals/I&O's: Vital Signs Temp Pulse Resp BP Pulse Ox 98.4 F 82 18 120/79 97 04/20/19 00:53 04/20/19 00:53 04/20/19 00:53 04/20/19 00:53 04/20/19 00:53 Oxygen Flow Rate (L/min) 2 Oxygen Delivery Method Room Air Weight: 219 lb 12.814 oz Body Mass Index (BMI) 35.4 Intake and Output for Last 24 Hours 04/18/19 04/19/19 04/20/19 23:59 23:59 23:59 Intake Total 100 / 120 2446.66 / 2446.66 928.33 / 928.33 Output Total 0 / 0 Balance 100 / 120 2446.66 / 2446.66 928.33 / 928.33 Abdomen: Bowel Sounds Present, Soft, Non Tender, - - Dressings clean and dry Current Medications Acetaminophen (Tylenol) 650 mg PO Q6H PRN PRN PRN Reason: Pain Score 1-10/10 Last Admin: 04/19/19 21:51 Dose: 650 mg Documented by: Hydrocodone Bitart/Acetaminophen ([place] 5mg-325mg) 1 - 2 tablet PO Q4H PRN PRN PRN Reason: Pain Score 1-10/10 Albuterol Sulfate (Ventolin Aerosols) 2.5 mg INHALATION Q6H PRN PRN PRN Reason: asthma Enoxaparin Sodium (Lovenox) 40 mg SC DAILY@0600 [facility] Last Admin: 04/19/19 18:46 Dose: 40 mg Documented by: Famotidine (Pepcid) 40 mg PO DAILY [facility] Lactated Ringer's () 1,000 mls @ 100 mls/hr IV .Q10H [facility] Last Admin: 04/20/19 02:57 Dose: 100 mls/hr Documented by: Lorazepam (Ativan) 0.5 mg IV Q6H PRN PRN PRN Reason: ANXIETY Morphine Sulfate () 1 - 2 mg IV Q1H PRN PRN PRN Reason: Pain Score 1-10/10 Last Admin: 04/20/19 00:50 Dose: 1 mg Documented by: Ondansetron HCl (Zofran) 4 mg IV Q8H PRN PRN PRN Reason: NAUSEA Last Admin: 04/19/19 21:52 Dose: 4 mg Documented by: Medical Necessity - Tobacco Use Smoking Status: Never smoker Tobacco Use: Secondhand Assessment/Plan All Active Problems (Last Updated 02/09/19 @ 18:[address] Trixie Lee, DO) Abdominal pain affecting (Acute) 38 weeks gestation of (Acute) Primiparous (Acute) Rectal pain (Acute) 39 weeks gestation of (Acute) 40 weeks gestation of (Acute) Primiparous (Acute) Abdominal pain (Acute) Intellectual disability (Acute) Patient appears to be very stable status post laparoscopic cholecystectomy with cholangiograms. I suspect to common bile duct stones. She is scheduled with Dr. Jigar Barbour to undergo an ERCP today. I will defer discharge recommendations to him. She is otherwise stable and ready to go. Roman Domingo M.D., F.A.C.S.
[2019-04-20] MEDS: Enoxaparin 40 MG/0.4 ML Syringe SC (05:52)
--- NOTE | 2019-04-20 07:56 | PCM.PN.SRG ---
Subjective: The patient reports she is doing well. - Physical Exam Vitals/I&O's: Vital Signs Temp Pulse Resp BP Pulse Ox 98.0 F 55 L 16 114/74 99 04/20/19 06:13 04/20/19 06:13 04/20/19 06:13 04/20/19 06:13 04/20/19 06:13 Oxygen Flow Rate (L/min) 2 Oxygen Delivery Method Room Air Weight: 219 lb 12.814 oz Body Mass Index (BMI) 35.4 Intake and Output for Last 24 Hours 04/18/19 04/19/19 04/20/19 23:59 23:59 23:59 Intake Total 100 / 120 2446.66 / 2446.66 928.33 / 928.33 Output Total 0 / 0 800 / 800 Balance 100 / 120 2446.66 / 2446.66 128.33 / 128.33 General: Alert, Oriented x3 Neck: No JVD Lungs: Normal air movement Abdomen: Soft, Non Tender Current Medications Acetaminophen (Tylenol) 650 mg PO Q6H PRN PRN PRN Reason: Pain Score 1-10/10 Last Admin: 04/19/19 21:51 Dose: 650 mg Documented by: Hydrocodone Bitart/Acetaminophen ([place] 5mg-325mg) 1 - 2 tablet PO Q4H PRN PRN PRN Reason: Pain Score 1-10/10 Albuterol Sulfate (Ventolin Aerosols) 2.5 mg INHALATION Q6H PRN PRN PRN Reason: asthma Enoxaparin Sodium (Lovenox) 40 mg SC DAILY@0600 [facility] Last Admin: 04/20/19 05:52 Dose: 40 mg Documented by: Famotidine (Pepcid) 40 mg PO DAILY [facility] Lactated Ringer's () 1,000 mls @ 100 mls/hr IV .Q10H [facility] Last Admin: 04/20/19 02:57 Dose: 100 mls/hr Documented by: Lorazepam (Ativan) 0.5 mg IV Q6H PRN PRN PRN Reason: ANXIETY Morphine Sulfate () 1 - 2 mg IV Q1H PRN PRN PRN Reason: Pain Score 1-10/10 Last Admin: 04/20/19 00:50 Dose: 1 mg Documented by: Ondansetron HCl (Zofran) 4 mg IV Q8H PRN PRN PRN Reason: NAUSEA Last Admin: 04/19/19 21:52 Dose: 4 mg Documented by: Medical Necessity - Tobacco Use Smoking Status: Never smoker Tobacco Use: Secondhand Assessment/Plan All Active Problems (Last Updated 02/09/19 @ 18:[address] Trixie Lee, DO) Abdominal pain affecting (Acute) 38 weeks gestation of (Acute) Primiparous (Acute) Rectal pain (Acute) 39 weeks gestation of (Acute) 40 weeks gestation of (Acute) Primiparous (Acute) Abdominal pain (Acute) Intellectual disability (Acute) 28-year-old female with choledocholithiasis 1. Patient had 2 gallstones on her cholangiogram yesterday during cholecystectomy. I was consulted for ERCP. I discussed ERCP in detail with the patient including the risks of bleeding, infection, perforation of bile duct or bowel, pancreatitis. The patient understands all the risks as well to proceed with ERCP this afternoon. I also discussed stent placement possibility. Tyrese Barbour MD Pager: [facility] [address] [place] [address] [place] [address] Office:
[2019-04-20 08:35] LABS: AST(SGOT) 144 U/L (15-37); Alanine Aminotransfer ALT/SGPT 287 U/L (13-56); Albumin, Serum 2.5 g/dL (3.2-5.0); Alkaline Phosphatase 173 U/L (45-117); Bilirubin, Direct 0.21 mg/dL (0.00-0.30); Globulin 3.5 g/dL (2.2-4.2)
--- NOTE | 2019-04-20 12:35 | RAD_ITS ---
Fluoroscopic guided ERCP INDICATION: Choledocholithiasis, sphincterotomy and basket extraction TECHNIQUE: Fluoroscopic guided ERCP with sphincterotomy and basket extraction more performed in the AP projection. 18.6 seconds of fluoroscopic time were utilized during the exam. 31 images were obtained during the exam. FINDINGS: ERCP was performed followed by sphincterotomy and basket extraction of intraductal stone as per clinical history. For more complete information recommend referral to surgical notes. RAD/ERCP Biliary Only IMPRESSION: Fluoroscopic guided ERCP, sphincterotomy and basket extraction Electronically Signed: Dominic Carlisle MD at 16:13 EST , Service support ,
--- NOTE | 2019-04-20 13:10 | OP.CCLET_ITS ---
04/20/2019 Young Garcia Re : ERCP procedure for [place] Tidwell Dear Beatriz This procedure was performed on Saturday, April 20, 2019. My impressions and recommendations are as follows: Impressions : - The major papilla appeared normal. - Choledocholithiasis was found. Complete removal was accomplished by biliary sphincterotomy and balloon extraction. - A biliary sphincterotomy was performed. - The biliary tree was swept. Recommendations : - Return patient to hospital [facility] for ongoing care. - Resume previous diet. My findings are described in the full procedure note, which is enclosed. If I can be of further assistance, please feel free to contact me at Doctor phone number(s): , Work: . Sincerely, Tyrese Barbour MD 04/20/2019 1:10:09 PM This report has been signed electronically.
--- NOTE | 2019-04-20 13:10 | OP.ERCP_ITS ---
Patient Name: [place] Tidwell Procedure Date: 04/20/2019 12:19 PM Date of : 1990 Age: 28 Procedure: ERCP Indications: Bile duct stone(s) Providers: Tyrese Barbour MD Medicines: General Anesthesia Patient Profile: This is a 28 year old female. Refer to note in patient chart for documentation of history and physical. Complications: No immediate complications. Estimated blood loss: Minimal. Procedure: Pre-Anesthesia Assessment: - Prior to the procedure, a History and Physical was performed, and patient medications and allergies were reviewed. The patient's tolerance of previous anesthesia was also reviewed. The risks and benefits of the procedure and the sedation options and risks were discussed with the patient. All questions were answered, and informed consent was obtained. Prior Anticoagulants: The patient has taken Lovenox (enoxaparin), last dose was day of procedure. After reviewing the risks and benefits, the patient was deemed in satisfactory condition to undergo the procedure. After obtaining informed consent, the scope was passed under direct vision. Throughout the procedure, the patient's blood pressure, pulse, and oxygen saturations were monitored continuously. The [id number] endoscope was introduced through the mouth, and advanced to the duodenum and used to inject contrast into the bile duct. The ERCP was accomplished without difficulty. The patient tolerated the procedure well. Scope In: 12:42:55 PM Scope Out: 12:49:05 PM Total Procedure Duration Time 0 hours 6 minutes 10 seconds Findings: The major papilla was normal. A 0.035 inch x 260 cm straight Dreamwire was passed into the biliary tree. The bile duct was then deeply cannulated over the guidewire. Contrast was injected. Choledocholithiasis was found in a nondilated duct. Biliary sphincterotomy was made with a sphincterotome using ERBE electrocautery. There was no post-sphincterotomy bleeding. The biliary tree was swept with a 12 mm balloon starting at the bifurcation. All stones were removed. Impression: - The major papilla appeared normal. - Choledocholithiasis was found. Complete removal was accomplished by biliary sphincterotomy and balloon extraction. - A biliary sphincterotomy was performed. - The biliary tree was swept. Recommendation: - Return patient to hospital [facility] for ongoing care. - Resume previous diet. Procedure Code(s): --- Professional --- 31733, Endoscopic retrograde cholangiopancreatography (ERCP); with removal of calculi/debris from biliary/pancreatic duct(s) Diagnosis Code(s): --- Professional --- K80.50, Calculus of bile duct without cholangitis or cholecystitis without obstruction CPT copyright 2017 [employer]. All rights reserved. The codes documented in this report are preliminary and upon data coder operator review may be revised to meet current compliance requirements. Tyrese Barbour MD 04/20/2019 1:10:09 PM This report has been signed electronically. Number of Addenda: 0 Note Initiated On: 04/20/2019 12:19 PM
--- NOTE | 2019-04-20 13:27 | PCA ---
pt off floor
--- NOTE | 2019-04-20 16:30 | CASEMGMT ---
Social Work Met with pt and mother to educate on Advanced Directives. Pt did not want to complete at the time. Mother was interested in taking the AD papers home and filling papers out at later time. Educated mother to not signing papers until in presence of witness or notary. Provided mother with resources. Lupe Perez, social work international sales manager Sonam Mc, [employer]ONANCE TECHNOLOGIST
== END 2019-04-20 18:08 | disposition home or self-care (01) ==
LOC: ED 18:13 → MS3 04-19 06:22
PROVIDERS: Surgery; Admitting Provider Surgery; Emergency Provider Emergency Medicine; PCP Nurse Practitioner Family; Visit Provider Surgery
PROC: (CPT 47610; principal; 2019-04-19 14:45)
DX: K80.10 Calculus of gallbladder with chronic cholecystitis without obstruction (principal); E66.9 Obesity, unspecified; F79 Unspecified intellectual disabilities; J45.909 Unspecified asthma, uncomplicated; K21.9 Gastro-esophageal reflux disease without esophagitis; K80.50 Calculus of bile duct without cholangitis or cholecystitis without obstruction; Z79.899 Other long term (current) drug therapy; Z68.35 Body mass index [BMI] 35.0-35.9, adult
CPT/HCPCS: 00790; 43264; 47563; 74300; 74328; 76000; 76705; 80048; 80076; 83690; 84484; 84703; 85025; 88304; 93005; 96361; 96365; 96366; 96372; 96375; 96376; 99218; 99251; 99285; J7050; J7120; A4216; G0378; G0463; J1610; J2405

== ENCOUNTER 2020-08-12 14:40 | Outpatient (CLI) | payer MEDICAID, SELFPAY ==
[2019-04-20 10:53] VITALS: BMI 35.4
[2020-08-12 14:52] VITALS: BMI 39.2
[2020-08-12 14:57] VITALS: BP 136/84; PULSE 86
[2020-08-12] MEDS: 0.9% Saline Lock 10 ML Syringe IV (15:40)
[2020-08-12 16:01] LABS: Hematocrit 35.4 % (37-47); Hemoglobin 11.2 g/dL (12.0-15.0); Mean Corp Hgb Conc 31.6 g/dL (32-36); Mean Corpuscular Hgb 27.1 pg (27.0-32.0); Mean Corpuscular Volume 85.7 fL (81-99); Mean Platelet Vol. 12.4 fl (6.2-12.0); Platelet Count 187 K/mm3 (150-450); RBC Distribution Width CV 14.4 % (11.6-14.6); RBC Distribution Width SD 44.3 fl (35.1-43.9); Red Blood Count 4.13 M/mm3 (4.2-5.4); White Blood Count 8.2 K/mm3 (4.4-11.0)
[2020-08-12 16:24] LABS: Fibrinogen 511 mg/dl (203-444); Partial Thromboplast Time 21.1 Seconds (24.1-36.2); Prothrombin Time (Protime)PT. 12.3 SECONDS (11.7-14.9)
[2020-08-12 17:24] VITALS: BP 117/73; PULSE 85; TEMP 37.3
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
[2020-08-12 18:58] VITALS: BP 132/62; PULSE 88
== END 2020-08-12 19:24 | disposition home or self-care (01) ==
LOC: WPOUT 14:45 → WP 14:46
PROVIDERS: PCP Nurse Practitioner Family; Visit Provider Obstetrics & Gynecology
DX: O26.893 Other specified pregnancy related conditions, third trimester (principal); R10.9 Unspecified abdominal pain; O99.213 Obesity complicating pregnancy, third trimester; E66.9 Obesity, unspecified; Z3A.38 38 weeks gestation of pregnancy
CPT/HCPCS: 36415; 59025; 85027; 85384; 85610; 85730; 86850; 86900; 86901; 99218; A4216; G0378

== ENCOUNTER 2020-08-22 01:37 | Outpatient (CLI) | payer MEDICAID, SELFPAY ==
[2020-08-22 01:55] VITALS: TEMP 36.6
[2020-08-22 01:56] VITALS: BP 129/79; PULSE 77; O2SAT 98
[2020-08-22 02:00] VITALS: BMI 40.8
[2020-08-22 02:38] LABS: ROM Internal Control Test YES-OK TO RESULT pt. (Internal QC); ROM Patient Test Negative (Negative)
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
== END 2020-08-22 02:55 | disposition home or self-care (01) ==
LOC: WPOUT 01:41 → WP 01:42
PROVIDERS: PCP Nurse Practitioner Family; Visit Provider Obstetrics & Gynecology
DX: O47.1 False labor at or after 37 completed weeks of gestation (principal); O99.213 Obesity complicating pregnancy, third trimester; E66.9 Obesity, unspecified; Z3A.39 39 weeks gestation of pregnancy
CPT/HCPCS: 59025; 59050; 84112; 99218; G0378

== ENCOUNTER 2020-08-31 13:50 | Inpatient (IN) | payer MEDICAID, SELFPAY ==
[2020-08-31] VITALS (37 sets, daily range): BP systolic 80–144; BP diastolic 51–96; PULSE 73–181; TEMP 36.3–37.1; O2SAT 96–100; BMI 41.4
[2020-08-31] MEDS: Lactated Ringers 1,000 ML 50 ML IV (15:00)
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
[2020-08-31 15:17] LABS: Absolute Lymphocyte Count 2.02 X10^3/uL (0.83-4.51); Absolute Neutrophil Count 5.6 X10^3/uL (2.0-7.7); Basophil# 0.04 X10^3/uL; Basophil% 0.5 % (0-1); Eosinophil# 0.12 X10^3/uL; Eosinophils% 1.4 % (0-5); Hematocrit 37.2 % (37-47); Hemoglobin 11.8 g/dL (12.0-15.0); Lymphocyte # 2.02 X10^3/ul (0.83-4.51); Lymphocyte % 23.5 % (19-41); Mean Corp Hgb Conc 31.7 g/dL (32-36); Mean Corpuscular Hgb 26.9 pg (27.0-32.0); Mean Corpuscular Volume 84.7 fL (81-99); Mean Platelet Vol. 13.1 fl (6.2-12.0); Monocyte# 0.75 X10^3/uL; Monocyte% 8.7 % (0-10); NRBC Flagged by Analyzer 0 % (0-5); Neutrophil # 5.61 X10^3/uL (2.7-7.7); Neutrophil % 65.1 % (47-70); Platelet Count 176 K/mm3 (150-450); RBC Distribution Width CV 15.1 % (11.6-14.6); RBC Distribution Width SD 45.6 fl (35.1-43.9); Red Blood Count 4.39 M/mm3 (4.2-5.4); White Blood Count 8.6 K/mm3 (4.4-11.0)
[2020-08-31] MEDS: miSOPROStol 25 MCG TABLET PO (16:21)
[2020-08-31] MEDS: 0.9% Saline Lock 10 ML Syringe IV (17:06)
[2020-08-31] MEDS: 0.9% Normal Saline Single 100 ML IV.SOLN. INTRA-UTER (18:25)
--- NOTE | 2020-08-31 18:28 | PCM.PN.OB ---
Subjective Subjective Resting comfortably in room, family at bedside. Objective Data Objective Data Vital Signs: Vital Signs Temp Pulse BP Pulse Ox 97.3 F L 73 130/79 H 97 08/31/20 17:27 08/31/20 17:28 08/31/20 17:28 08/31/20 14:15 Weight: 248 lb 14.43 oz Body Mass Index (BMI) 41.4 Intake & Output: Intake and Output for Last 24 Hours 08/29/20 08/30/20 08/31/20 23:59 23:59 23:59 Intake Total 105 / 105 Balance 105 / 105 Lab / Micro Data Result Diagrams: 08/31/20 15:00 Labs: Laboratory Results - last 24 hr 08/31/20 08/31/20 15:00 15:00 WBC 8.6 RBC 4.39 Hgb 11.8 L Hct 37.2 MCV 84.7 MCH 26.9 L MCHC 31.7 L RDW Std Deviation 45.6 H RDW Coeff of Eliana 15.1 H Plt Count 176 MPV 13.1 H Immature Gran % (Auto) 0.800 Neut % (Auto) 65.1 Lymph % (Auto) 23.5 [place] % (Auto) 8.7 Eos % (Auto) 1.4 Baso % (Auto) 0.5 Absolute Neuts (auto) 5.6 Absolute Lymphs (auto) 2.02 Nucleated RBC % 0 Blood Type O POSITIVE Antibody Screen NEGATIVE Physical Exam Narrative Cervix 3cm/60/-2. Stafford catheter inserted through cervical os without difficulty, tolerated well. TOCO:Irregular, mild FHT: 140, moderate, accels, no decels, category 1 NST FHR Rate Baby A Baseline: 140 Variability:: Moderate Accelerations:: 15 x 15 Decelerations:: None FHR Category:: Category I Uterine Activity:: irregular Assessment & Plan (1) Encounter for induction of labor: PLAN: 1) Continue with active management 2) Stafford catheter placed in cervical os. To start pitocin at 2019 per policy
[2020-08-31] MEDS: Lactated Ringers 500 ML 999 ML IV ×2 (20:18→23:11)
[2020-08-31] MEDS: fentaNYL-bupivacaine (epidural) 100 ML BAG EPIDURAL (21:19)
[2020-08-31] MEDS: Oxytocin 30 units/NS 500 ml 30 UNITS/500 ML IV.SOLN IV (21:41)
[2020-08-31] MEDS: Ondansetron 4 MG/2 ML Vial IV (23:23)
[2020-09-01] VITALS (28 sets, daily range): BP systolic 102–176; BP diastolic 51–83; PULSE 67–106; RESP 16–20; TEMP 36–36.9; O2SAT 95–98
[2020-09-01] MEDS: Lactated Ringers 1,000 ML 200 ML IV (00:42)
[2020-09-01] MEDS: Oxytocin 30 units/NS 500 ml 30 UNITS/500 ML IV.SOLN 334 UNITS IV (01:03)
--- NOTE | 2020-09-01 01:12 | EX.PCM.OBRPT ---
Assessment & Plan (1) (spontaneous vaginal delivery): (2) Shoulder dystocia, delivered: (3) Intellectual disability: (4) Post term , 41 weeks: Maternal Data Information POLINA Calculator Estimated Delivery Date Method Current WG Current Estimate 08/24/20 Manual 41w 1d Vaginal Delivery Maternal Presentation Maternal Presentation: Medically Indicated Induction Maternal Presentation: Patient is a at 41.0 weeks gestation for induction of labor for postdates. Type of Induction: Pitocin and Stafford Bulb Medical Reason for Induction: Post term Operative Information Date of Procedure: 09/01/20 Pre-Operative Diagnosis: Post term gestation Post-Operative Diagnosis: , live male Surgery / Procedure Performed: Spontaneous Vaginal Delivery Type of Anesthesia: Epidural Drain: Stafford to straight drain Estimated Blood Loss: 200 Time of Delivery: 01:01 Findings Description of Procedure: Called to patient's room due to feeling increased pressure and desire to push. Patient found to be complete dilation and +1 station. Patient pushed through a few contractions and delivered head in ROP position. Infant head restituted to direct OP. Patient placed in Miracle position and suprapubic pressure given. 30 seconds after head was delivered, the anterior shoulder delivered followed by posterior and remainder of infant body. Cord immediately clamped and cut and handed to nursing staff. Cord blood collected from 3 vessel cord. Pitocin IV started for active management of the third stage of labor. Placenta delivered spontaneously and intact via Swift. After inspection, vagina and perineum are intact. Vaginal sweep completed by me. EBL 200 cc, APGARS 6/9. Vigorous male skin to skin with patient and bonding at this time. Dr. Conklin notified of delivery. Presentation: ROP Amniotic Membrane Rupture Type: Spontaneous Time of Membrane Rupture: 2229 Amniotic Fluid Description: Clear Placental Delivery Description: Spontaneous Placenta Disposition: [facility] Cord Vessel Description: 3 Vessels Cord Entanglement: None Infant A Gender: Male (1 minute): 6 (5 minute): 9 Delayed Cord Clamping: No Post Vaginal Delivery Medications Given After Delivery: IV Pitocin Episiotomy Description: None Laceration: None Complication Complications: - (30 second shoulder dystocia)
[2020-09-01] MEDS: 0.9% Saline Lock 10 ML Syringe IV (03:52)
[2020-09-01] MEDS: Acetaminophen 500 MG Tablet 1000 MG PO ×2 (05:45→23:36)
[2020-09-01] MEDS: Prenatal Vits Tablet 1 TABLET PO (11:38)
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
[2020-09-02 04:10] VITALS: BP 114/73; PULSE 69; RESP 20; TEMP 36.4; O2SAT 95
[2020-09-02 08:07] VITALS: BP 114/75; PULSE 86; RESP 16; TEMP 36.4
--- NOTE | 2020-09-02 09:00 | PCM.PN.OB ---
Subjective Subjective Pain controlled Objective Data Objective Data Vital Signs: Vital Signs Temp Pulse Resp BP Pulse Ox 97.5 F L 86 16 114/75 95 09/02/20 08:07 09/02/20 08:07 09/02/20 08:07 09/02/20 08:07 09/02/20 04:10 Oxygen Delivery Method Room Air Weight: 248 lb 14.43 oz Body Mass Index (BMI) 41.4 Intake & Output: Intake and Output for Last 24 Hours 08/31/20 09/01/20 09/02/20 23:59 23:59 23:59 Intake Total 2166.83 / 2166.83 828.07 / 828.07 Output Total 100 / 100 1400 / 1400 Balance 2066.83 / 2066.83 -571.93 / -571.93 Lab / Micro Data Result Diagrams: 08/31/20 15:00 Physical Exam Const alert, oriented x3 and no apparent distress HEENT normocephalic GI soft to palpation, non-tender and non-distended GI Narrative: fundus firm, mid & below umbilicus Extremity normal to inspection and no calf tenderness Assessment & Plan (1) (spontaneous vaginal delivery): COMMENT: PPD#1 PLAN: Routine care Social work consult - in progress Intellectual disability Plan for discharge to home tomorrow
[2020-09-02] MEDS: Prenatal Vits Tablet 1 TABLET PO (10:40)
[2020-09-02 14:21] VITALS: BP 133/76; PULSE 86; RESP 16; TEMP 36.8; O2SAT 99
[2020-09-02 19:50] VITALS: BP 117/73; PULSE 63; RESP 16; TEMP 36.3; O2SAT 99
[2020-09-03] MEDS: Naproxen 500 MG Tablet PO (00:21)
[2020-09-03 02:47] VITALS: BP 113/56; PULSE 68; RESP 16; TEMP 36.7; O2SAT 97
[2020-09-03 08:00] VITALS: BP 111/69; PULSE 72; RESP 16; TEMP 36.7; O2SAT 99
--- NOTE | 2020-09-03 08:08 | PCM.PN.OB ---
Subjective Subjective Patient seen at bedside. Sleeping sound. and supplementing with formula. Denies any pain. Ambulating and voiding without difficulty. Desires discharge home today. Objective Data Objective Data Vital Signs: Vital Signs Temp Pulse Resp BP Pulse Ox 98.0 F 72 16 111/69 99 09/03/20 08:00 09/03/20 08:00 09/03/20 08:00 09/03/20 08:00 09/03/20 08:00 Oxygen Delivery Method Room Air Weight: 248 lb 14.43 oz Body Mass Index (BMI) 41.4 Intake & Output: Intake and Output for Last 24 Hours 09/01/20 09/02/20 09/03/20 23:59 23:59 23:59 Intake Total 828.07 / 828.07 Output Total 1400 / 1400 Balance -571.93 / -571.93 Lab / Micro Data Result Diagrams: 08/31/20 15:00 ROS Eyes Eyes: Denies blurry vision, change in vision or spots in vision ENT HEENT: Denies dizziness or headache(s) Cardiovascular Cardiovascular: Denies abdominal pain, chest pain or dyspnea Respiratory/Chest Respiratory/Chest: Denies cough, dyspnea, shortness of breath at rest or shortness of breath with exertion Gastrointestinal Gastrointestinal: Denies abdominal pain, diarrhea or vomiting Genitourinary Genitourinary: Denies change in urinary stream, difficulty urinating or dysuria Musculoskeletal Musculoskeletal: Reports none Integumentary Integumentary: Denies rash Neurologic Neurologic: Denies dizziness, headache(s), memory loss or weakness Physical Exam Const alert and no apparent distress General Appearance: cooperative and comfortable Exam Limitations: no limitations HEENT normocephalic Eyes General Eye: normal appearance of both eyes Neck full ROM General: normal visual inspection Chest Chest: symmetrical chest wall rise Resp normal respiratory effort and normal air movement Effort and Inspection: symmetric chest movement Auscultation: clear to auscultation bilaterally Cardio regular rate and regular rhythm GI normal to inspection, nondistended, normoactive bowel sounds Back/Spine normal ROM Extremity full ROM and no calf tenderness General Extremity: normal exam except as noted Skin no rashes or lesions noted Neuro CN's II-XII intact bilaterally Psych mental status grossly normal Assessment & Plan (1) (spontaneous vaginal delivery): COMMENT: PPD#1 PLAN: PPD #2 - intact Routine care SS consult prior to discharge Discharge home with follow up in office
--- NOTE | 2020-09-03 08:11 | PCM.DC ---
Discharge Instructions Diet Discharge Diet: No restrictions Activity May resume sexual activity in: 6-8 weeks Weight Bearing Status: Weight bearing as tolerated Dressing / Incision Call your doctor if you observe: Fever of 101 or Higher, Inability to urinate, Using more than 1 pad per hour, Shortness of breath, Chest pain, Calf discomfort and Uncontrolled pain Follow Up Care Please Follow Up With: Vilma Glover CNM When: 2 weeks virtual visit/ 6 weeks in office Test Results: Test results from this visit will be discussed in further detail at your follow-up appointment, if applicable. Discharge Plan Admission Admit Date/Time: 08/31/20 13:50 Primary Reason for Your Visit: induction of labor Attending Provider: Vilma Glover Primary Care Provider: Sheba Henderson NP Instructions Patient Instructions: , : Caring for Yourself Discharge Orders/Prescriptions Prescriptions: Continued prenat.vits,samir,[id number] Tablet 1 tab PO DAILY RF: 0 Referrals / Follow Up: Sheba Henderson NP, DEODORIZER OPERATOR-C [Primary Care Provider] - Disposition Disposition (needs filled in before D/C Order can be placed): Home, Self Care
[2020-09-03] MEDS: Prenatal Vits Tablet 1 TABLET PO (10:32)
[2020-09-03 14:05] VITALS: BP 126/78; PULSE 64; RESP 16; TEMP 36.4
--- NOTE | 2020-09-03 14:26 | NURSING ---
this RN assisted patient to complete the certificate
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
--- NOTE | 2020-09-04 10:52 | CASEMGMT ---
Social Work Labor and Delivery Unit Called [facility] and spoke with Prabha Jenkins in the intake department, , extension [phone]. Reported of new baby in conjunction of this family having an open children services case during the , and uncertainty if there would be concerned about the going into the home. Reported additional dependency risk factors regarding limited support, MOB'S cognitive functioning, and current support system (MOB significant other) also having some level of a disability as well. Brief maternal and infant histories provided. Children services made aware of discharge. Reported that family is working with help me grow already. -ARTIE Hurst, BOARD HAMMER OPERATOR *Information documented generated via the [employer] system.*
== END 2020-09-03 16:15 | disposition home or self-care (01) | DRG 560 ==
PROVIDERS: Admitting Provider Advanced Practice Midwife; PCP Nurse Practitioner Family; Visit Provider Advanced Practice Midwife
DX: O48.0 Post-term pregnancy (principal); O66.0 Obstructed labor due to shoulder dystocia; O99.824 Streptococcus B carrier state complicating childbirth; O99.52 Diseases of the respiratory system complicating childbirth; J45.909 Unspecified asthma, uncomplicated; O99.214 Obesity complicating childbirth; E66.01 Morbid (severe) obesity due to excess calories; F79 Unspecified intellectual disabilities; Z3A.41 41 weeks gestation of pregnancy; Z37.0 Single live birth
CPT/HCPCS: 59025; 59050; 85025; 86850; 86900; 86901; 99218; J7120; A4216; G0378; J2405

== ENCOUNTER 2020-09-29 12:32 | Emergency (ER) | payer MEDICAID, SELFPAY ==
[2020-08-31 13:57] VITALS: BMI 41.4
[2020-09-29 12:33] VITALS: BP 125/86; PULSE 85; RESP 16; TEMP 35.9; O2SAT 97; BMI 40.3
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
[2020-09-29 13:44] LABS: Absolute Lymphocyte Count 1.91 X10^3/uL (0.83-4.51); Absolute Neutrophil Count 3.5 X10^3/uL (2.0-7.7); Basophil# 0.05 X10^3/uL; Basophil% 0.8 % (0-1); Eosinophil# 0.22 X10^3/uL; Eosinophils% 3.5 % (0-5); Hematocrit 42.1 % (37-47); Hemoglobin 12.4 g/dL (12.0-15.0); Lymphocyte # 1.91 X10^3/ul (0.83-4.51); Lymphocyte % 30.4 % (19-41); Mean Corp Hgb Conc 29.5 g/dL (32-36); Mean Corpuscular Hgb 26.7 pg (27.0-32.0); Mean Corpuscular Volume 90.5 fL (81-99); Mean Platelet Vol. 11.1 fl (6.2-12.0); Monocyte# 0.59 X10^3/uL; Monocyte% 9.4 % (0-10); NRBC Flagged by Analyzer 0 % (0-5); Neutrophil # 3.49 X10^3/uL (2.7-7.7); Neutrophil % 55.6 % (47-70); Platelet Count 167 K/mm3 (150-450); RBC Distribution Width CV 16.1 % (11.6-14.6); RBC Distribution Width SD 53.6 fl (35.1-43.9); Red Blood Count 4.65 M/mm3 (4.2-5.4); White Blood Count 6.3 K/mm3 (4.4-11.0)
[2020-09-29 13:57] LABS: Anion Gap 6 (5-15); BUN 11 mg/dL (7-18); Calcium,Total 8.4 mg/dL (8.5-10.1); Chloride 107 mmol/L (98-107); Creatinine, Serum 0.69 mg/dL (0.55-1.02); EST Glomerular Filtration Rate 108 mL/min (>60); Est Glom Filt Rate - Afr Amer 131 mL/min (>60); Estimated Creatinine Clearance 104.82 ml/min; Glucose 90 mg/dL (74-106); Potassium 3.7 mmol/L (3.5-5.1); Sodium Level 139 mmol/L (136-145)
[2020-09-29] MEDS: 0.9% Normal Saline 1,000 ML 125 ML IV (13:57)
[2020-09-29] MEDS: Morphine 4 MG/ML Syringe IV (13:58)
[2020-09-29] MEDS: Ondansetron 4 MG/2 ML Vial IV (13:58)
--- NOTE | 2020-09-29 15:46 | EKG12_ITS ---
Test Reason : CP Blood Pressure : / mmHG Vent. Rate : 071 BPM Atrial Rate : 071 BPM P-R Int : 108 ms QRS Dur : 086 ms QT Int : 420 ms P-R-T Axes : 065 055 023 degrees QTc Int : 456 ms Sinus rhythm with sinus arrhythmia with short MT Otherwise normal ECG Confirmed by CYNTHIA NICHOLS, LEIA ([id number]), advertising editor HARISH GARCIA ([id number]) on 10/01/2020 10:35:04 AM Referred By: ALDEN Confirmed By:LEIA MARIE MD
[2020-09-29] MEDS: Mag Hydrox/Al Hydrox/Simeth 30 ML UDC PO (15:55)
--- NOTE | 2020-09-29 16:06 | CT_ITS ---
HISTORY: painful ventral hernia. TECHNIQUE: Helically acquired images were obtained of the abdomen and pelvis with IV contrast. A radiation dose optimization technique was used for this scan. IV Contrast dosage and agent: Gastrografin PO T 100 mL Isovue-300 IV. # of images incl. paperwork: 429. COMPARISON: US 04/18/2019. FINDINGS: LOWER CHEST: Lung bases clear. BOWEL: Bowel including appendix nondilated. No focal pericolonic inflammation. LIVER: Mild periportal edema. GALLBLADDER/BILIARY TREE: Absent gallbladder. SPLEEN: Heterogeneous enhancement. PANCREAS/KIDNEYS/ADRENAL GLANDS: Unremarkable. PERITONEUM: No significant ascites. Small right lower quadrant mesenteric lymph nodes noted. VESSELS: No abdominal aortic aneurysm. PELVIC ORGANS: Unremarkable. ABDOMINAL WALL: 4.5 x 7.6 cm fat-containing ventral hernia with a 2.3 cm neck, stranding in the hernia sac extending into the anterior abdomen, and no bowel in the hernia. Smaller fat-containing umbilical hernia just inferiorly. BONES: Intact. CT/Abdomen/Pelvis WITH Contrast IMPRESSION: Moderate fat-containing ventral hernia with edema in the hernia sac from strangulation or inflammation. Smaller fat-containing umbilical hernia more inferiorly. Mild periportal edema in the liver. Heterogeneous enhancement of the spleen, nonspecific. Consider follow-up. Individualized dose optimization techniques were used for this CT. at 1642 Reported and signed by: Molly Bob MD Electronically Signed: Molly Bob MD at 16:41 EDT Tel , Service support ,
[2020-09-29 16:57] VITALS: BP 128/76; PULSE 75; RESP 16; O2SAT 97
== END 2020-09-29 16:58 | disposition home or self-care (01) ==
PROVIDERS: Emergency Provider Emergency Medicine; PCP Nurse Practitioner Family
DX: O99.891 Other specified diseases and conditions complicating pregnancy (principal); K43.9 Ventral hernia without obstruction or gangrene; R07.89 Other chest pain; J45.909 Unspecified asthma, uncomplicated; E66.9 Obesity, unspecified
CPT/HCPCS: 36415; 74177; 80048; 85025; 93005; 96361; 96374; 96375; 99283; Q9967; A4216; J2405

== ENCOUNTER 2020-11-04 10:32 | Day surgery (SDC) | payer MEDICAID, SELFPAY ==
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
[2020-11-04] VITALS (9 sets, daily range): BP systolic 104–123; BP diastolic 59–80; PULSE 57–91; RESP 16; TEMP 36.1–36.6; O2SAT 96–100; BMI 38.0
[2020-11-04 11:32] LABS: Internal QC Validated? YES +Cl - CLEAR BKGD; Pregnancy, Urine Negative Negative
[2020-11-04] MEDS: Cefazolin 2 GM in 0.9% Normal Saline 100 ML IV (11:57)
[2020-11-04] MEDS: Lidocaine 1% /Epi 1:100 (20ml) 20 ML Vial (12:15)
--- NOTE | 2020-11-04 12:58 | OP.PCM_ITS ---
Report of Operation Date of Procedure: 11/04/20 Pre-Operative Diagnosis: incisional ventral hernia Post-Operative Diagnosis: incisional incarcerated ventral hernia Surgery/Procedure Performed:: repair of incarcerated ventral hernia Description of Surgical Findings:: incarcerated omentum in incisional ventral hernia site - small fascial defect - 2 cm Surgeon: Leyda Evans Type of Anesthesia: General Anesthesiologist: Gunnar Delcid Specimen's removed: none Estimated Blood Loss (mL): < 10 ml Fluids Replaced: 800 ml RL Description of Procedure: After informed consent was obtained, the patient was brought to the Operating Room. Appropriate time out protocol was followed. and placed in the supine position. The patient was then placed under anesthesia. The abdomen was then prepped with a sterile surgical skin preparation. Sterile surgical drapes were placed. The site of the incision was previously planned out after review of the CT scan which revealed the ventral hernia just superior to the umbilical dimple. This skin and subcutaneous tissues were then widely infiltrated with the local anesthetic. A skin incision was then made with a 15 blade scalpel just superior to the umbilicus along the midline. It was carried down to the subcutaneous tissues using sharp dissection. Any hemorrhage was adequately controlled with electrocautery. Division by blunt dissection continued until the herniated tissues were identified. The herniated tissues were then from the fatty subcutaneous tissues using blunt dissection down to the level of the fascia. Dissection continued until the neck of the herniated tissues was noted at the fascial defect. The fascial defect was 2 cm in maximum dimension. The herniated contents, once from the fascia and the subcutaneous tissues, was then reduced back into the intraabdominal space. Digital examination from within the preperitoneal space via the fascial defect revealed no further ventral fascial defects. The fascial defect was then reapproximated with interrupted 0 PDS suture, transversely. The subcutaneous tissues and Tejas's fascia were then reapproximated along the midline using interrupted vicryl suture. The skin incision was reapproximated with running 4- 0 monocryl in a subcuticular fashion. Instrument, suture and sponge count were validated and correct. Cavilon and steristrips were placed to reinforce the skin closure and a sterile opsite dressing was applied. The patient was brought from to the Recovery Room in stable condition. Complications none noted Admit VTE Documentation VTE Present on Admission: Yes
--- NOTE | 2020-11-04 13:05 | DCINST_ITS ---
Discharge Instructions Follow Up Care Test Results: Test results from this visit will be discussed in further detail at your follow-up appointment, if applicable. Discharge Plan Admission Attending Provider: Leyda Evans Primary Care Provider: Sheba Henderson NP Instructions Additional Instructions / Restrictions: Recommended pain control regimen - May take 600 mg ibuprofen (Motrin) and then in 3-4 hours, may take 650 mg acetaminophen (Tylenol), then in 3-4 hours may take 600 mg ibuprofen, then in 3- 4 hours may take 650 mg acetaminophen and so on for 2-3 days May take narcotic pain medication for pain that is not controlled by above and at night for comfort through the night Leave dressings in place May shower, do not scrub in the areas of the dressings as they may unravel. If they become overly soiled you may remove them but leave incision site open to air. May take shower, cover drain site with towel or other such covering to prevent from getting overly wet Do not soak - no tub baths/swimming Ice applied to areas of discomfort may help No lifting/pushing/pulling greater than 10 pounds for 6-8 weeks. Regular diet as tolerated, drink plenty of fluids. Avoid carbonated beverages for a few days as this will cause abdominal bloating and thus discomfort after our surgery. Please call my office for an appointment to see me in 1-2 weeks. Office number is If any questions, please call my office at and ask the primary operator for the general surgery nurses desk Discharge Orders/Prescriptions Prescriptions: New hydrocodone-acetaminophen 5-325 mg tablet 1 tab PO Q8H 5 Days Qty: 15 RF: 0 Referrals / Follow Up: Sheba Henderson NP, CLOTH EXAMINER MACHINE-C [Primary Care Provider] - Disposition Disposition (needs filled in before D/C Order can be placed): Home, Self Care
[2020-11-04] MEDS: Lactated Ringers 1,000 ML 75 ML IV (13:15)
== END 2020-11-04 16:28 | disposition home or self-care (01) ==
LOC: SDC 10:34 → AC 10:36
PROVIDERS: Anesthesiology; PCP Nurse Practitioner Family; Referring Provider Surgery; Visit Provider Surgery
PROC: (CPT 49561; principal; 2020-11-04 11:45)
DX: K43.0 Incisional hernia with obstruction, without gangrene (principal); K42.9 Umbilical hernia without obstruction or gangrene; Z20.822 Contact with and (suspected) exposure to COVID-19; J45.909 Unspecified asthma, uncomplicated; K21.9 Gastro-esophageal reflux disease without esophagitis; F79 Unspecified intellectual disabilities; F41.9 Anxiety disorder, unspecified; E66.9 Obesity, unspecified; Z68.37 Body mass index [BMI] 37.0-37.9, adult; Z87.891 Personal history of nicotine dependence
CPT/HCPCS: 00832; 49561; 81025; 87426; C9803; J7120; J2405

== ENCOUNTER 2020-12-14 16:50 | Emergency (ER) | payer MEDICAID, SELFPAY ==
[2020-12-14 16:51] VITALS: BP 155/96; PULSE 90; RESP 20; TEMP 36.7; O2SAT 100; BMI 37.3
--- NOTE | 2020-12-14 17:00 | CT_ITS ---
STUDY: CT ABDOMEN AND PELVIS WITHOUT CONTRAST REASON FOR EXAM: Female, 30 years old. Pain right flank radiating to the abdomen centrally RADIATION DOSAGE (If Supplied By Facility): CTDIvol = ( 21.99 ) mGy, DLP = ( 1128.83 ) mGycm TECHNIQUE: Transaxial images were obtained from the dome of the diaphragm to the symphysis pubis without oral contrast, and without intravenous contrast. Sagittal and coronal images were reconstructed. Individualized dose optimization techniques were used for this CT. COMPARISON: 29 September 2020 FINDINGS: Examination is technically limited due to lack of IV contrast. Digastric information is available. The visualized lung bases are unremarkable. The visualized portions of the heart are within normal limits. Normal liver. Gallbladder is removed there is no biliary dilation.. Normal spleen. Normal pancreas. Normal bilateral adrenal glands. There is no hydronephrosis or urinary calculi. There is a vertical column of inflammation extending from the infrarenal space along the IVC and along the retroperitoneum and right paracolic gutter, reaching into the pelvis to the adnexa. There is no discrete fluid collection. There are mild reactive benign appearing mesenteric lymph nodes. There is no intestinal obstruction. Appendix is normal. Normal abdominal aorta. Normal inferior vena cava. Normal retroperitoneum. Normal urinary bladder. Supraumbilical midline ventral hernia has been repaired without recurrence with mild expected incisional granulation change. There is a small 1.3 cm opening umbilical fat hernia, stable since prior and without inflammation or fluid. . Normal osseous structures. CT/Abdomen/Pelvis without Cont IMPRESSION: 1. Right retroperitoneal inflammation along the ureter, nonspecific. Differential possibilities are recently passed stone, urinary tract infection/pyelonephritis, gonadal vein thrombosis, gonadal vein septic thrombophlebitis. Consider reevaluation with IV contrast. 2. No urinary calculi or hydronephrosis. 3. Repair midline abdominal hernia without recurrence. Electronically Signed: Tere Nuñez MD at 19:07 EDT Tel , Service support ,
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
[2020-12-14 17:11] VITALS: BP 155/96; PULSE 90; RESP 20; TEMP 36.7; O2SAT 100
[2020-12-14 17:40] LABS: Bacteria 0 SEEN /hpf (None Seen); Mucous, Urine 0 SEEN /hpf (<or=2+)
[2020-12-14 17:41] LABS: Absolute Lymphocyte Count 2.25 X10^3/uL (0.83-4.51); Absolute Neutrophil Count 2.8 X10^3/uL (2.0-7.7); Basophil# 0.03 X10^3/uL; Basophil% 0.5 % (0-1); Eosinophil# 0.18 X10^3/uL; Hematocrit 40.9 % (37-47); Hemoglobin 13.2 g/dL (12.0-15.0); Lymphocyte # 2.25 X10^3/ul (0.83-4.51); Lymphocyte % 37.7 % (19-41); Mean Corp Hgb Conc 32.3 g/dL (32-36); Mean Corpuscular Hgb 27.8 pg (27.0-32.0); Mean Corpuscular Volume 86.3 fL (81-99); Mean Platelet Vol. 10.6 fl (6.2-12.0); Monocyte# 0.66 X10^3/uL; Monocyte% 11.1 % (0-10); NRBC Flagged by Analyzer 0 % (0-5); Neutrophil # 2.83 X10^3/uL (2.7-7.7); Neutrophil % 47.4 % (47-70); Platelet Count 236 K/mm3 (150-450); RBC Distribution Width CV 15.1 % (11.6-14.6); Red Blood Count 4.74 M/mm3 (4.2-5.4)
[2020-12-14] MEDS: Ondansetron 4 MG/2 ML Vial IV (17:42)
[2020-12-14] MEDS: Ketorolac 15 MG/ML Vial IV (17:42)
[2020-12-14] MEDS: HYDROmorphone 0.5 MG/0.5 ML SYRINGE IV (17:42)
[2020-12-14] MEDS: 0.9% Normal Saline 1,000 ML 125 ML IV (17:46)
[2020-12-14 17:48] LABS: Color, Urine Yellow (Yellow); Glucose, Dipstick Normal (Normal); Ketone-Dipstick Negative (Negative); Leukocyte Esterase-Dipstick Negative /ul (Negative); Nitrite-Dipstick Negative (Negative); Occult Blood-Urine 10 /ul (Negative); Protein-Dipstick 100 mg/dl (Negative); Urine Bilirubin Dipstick Negative (Negative); Urine Clarity Sl. Cloudy (Clear); Urine Urobilinogen Normal (Normal)
[2020-12-14 17:56] LABS: Squamous Epithelial Cells - UA 0-5 SEEN /hpf (5-10)
[2020-12-14 17:58] LABS: Anion Gap 5 (5-15); BUN 12 mg/dL (7-18); BUN/Creat Ratio 11.7 RATIO (10-20); Chloride 107 mmol/L (98-107); Creatinine, Serum 1.03 mg/dL (0.55-1.02); EST Glomerular Filtration Rate 68 mL/min (>60); Est Glom Filt Rate - Afr Amer 82 mL/min (>60); Estimated Creatinine Clearance 73.17 ml/min; Glucose 100 mg/dL (74-106); Potassium 3.7 mmol/L (3.5-5.1); Sodium Level 140 mmol/L (136-145)
[2020-12-14 17:59] LABS: White Blood Cells 0-5 SEEN /hpf (0-5)
[2020-12-14 18:01] LABS: Red Blood Cells-Urine 0-5 SEEN /hpf (0-5)
[2020-12-14 18:26] LABS: Internal QC Validated? YES +Cl - CLEAR BKGD; Pregnancy, Serum, hCG Quali. NEGATIVE Negative
--- NOTE | 2020-12-14 19:10 | CT_ITS ---
EXAM: CT Abdomen and Pelvis With Intravenous Contrast CLINICAL INDICATION: 30 years old, Female; abdominal pain TECHNIQUE: Helically acquired images were obtained of the abdomen and pelvis with intravenous contrast. This CT exam was performed using one or more of the following dose reduction techniques: automated exposure control, adjustment of the mA and/or kV according to patient size, and/or use of iterative reconstruction technique. This report was created using [employer] report generation technology. CONTRAST: IV 100mL [id number] COMPARISON: CT abdomen and pelvis performed earlier today FINDINGS: Lower thorax: Atelectasis posterior lung bases. No cardiomegaly. No significant pericardial effusion. ABDOMEN: Liver: Unremarkable. Homogeneous. No focal mass. Gallbladder and bile ducts: Unremarkable. No calcified gallstones. No gallbladder distention or wall edema. No intra- or extrahepatic biliary ductal dilation. Pancreas: Unremarkable. No focal cystic or solid mass. Spleen: Unremarkable. Normal size without focal cystic or solid mass. Adrenals: Unremarkable. No nodules. Kidneys and ureters: There is extensive inflammation around the right ureter which could be due to a recently passed stone or urinary tract infection. Normal renal size and position. No hydronephrosis. Stomach and bowel: Unremarkable. No stomach or bowel distention. No focal inflammatory change. PELVIS: Appendix: No evidence of acute appendicitis. Bladder: Unremarkable. Reproductive: Unremarkable as visualized. No mass. ABDOMEN and PELVIS: Intraperitoneal space: Unremarkable. No ascites or other fluid collection. No free air. Bones/joints: Unremarkable. No suspicious lytic or blastic abnormality. Soft tissues: Umbilical hernia containing fat. Vasculature: The gonadal veins are patent. Abdominal aorta is non-dilated. Lymph nodes: Unremarkable. No enlarged lymph nodes. CT/Abdomen/Pelvis W IV Cont ONLY IMPRESSION: There is extensive inflammation around the right ureter which could be due to a recently passed stone or urinary tract infection. Correlation with urinalysis would be helpful. The gonadal veins are patent bilaterally. Electronically Signed: Minh Small MD at 20:14 EDT Tel , Service support ,
[2020-12-14 20:55] VITALS: BP 120/73; PULSE 64; RESP 16; O2SAT 100
[2020-12-14] MEDS: Ceftriaxone 1 GM/50 ML BAG IV (21:07)
== END 2020-12-14 22:10 | disposition home or self-care (01) ==
PROVIDERS: Emergency Provider Emergency Medicine; PCP Nurse Practitioner Family
DX: R10.31 Right lower quadrant pain (principal); J45.909 Unspecified asthma, uncomplicated; K21.9 Gastro-esophageal reflux disease without esophagitis; F41.9 Anxiety disorder, unspecified; E66.9 Obesity, unspecified; Z79.3 Long term (current) use of hormonal contraceptives; Z79.899 Other long term (current) drug therapy; Z87.440 Personal history of urinary (tract) infections; Z87.891 Personal history of nicotine dependence
CPT/HCPCS: 74176; 74177; 80048; 81001; 84703; 85025; 96361; 96365; 96375; 99285; J7030; Q9967; A4216; J2405

== ENCOUNTER 2022-12-17 17:13 | Emergency (ER) | payer MEDICAID, SELFPAY ==
[2022-12-17 17:15] VITALS: BP 122/78; PULSE 69; RESP 16; TEMP 36.4; O2SAT 98; BMI 41.1
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
--- NOTE | 2022-12-17 19:08 | RAD_ITS ---
EXAM: XR CHEST, 2 VIEWS CLINICAL INDICATION: cough TECHNIQUE: Frontal and lateral views of the chest. COMPARISON: No relevant prior studies available. FINDINGS: LUNGS AND PLEURAL SPACES: Unremarkable. No consolidation or edema. No pneumothorax. No effusion. HEART: Unremarkable. Cardiac silhouette not enlarged. MEDIASTINUM: Central airways and mediastinal contour are unremarkable. BONES/JOINTS: Unremarkable. SOFT TISSUES: Unremarkable. RAD/Chest PA and Lateral IMPRESSION: No radiographic evidence of acute cardiopulmonary disease. Electronically Signed: Hai Sanchez MD at 19:31 EDT ,
[2022-12-17] MEDS: Benzonatate 100 MG Capsule PO (20:53)
== END 2022-12-17 20:54 | disposition home or self-care (01) ==
PROVIDERS: Emergency Provider Emergency Medicine; PCP Nurse Practitioner Family; Visit Provider Emergency Medicine
DX: J40 Bronchitis, not specified as acute or chronic (principal); Z87.891 Personal history of nicotine dependence; R05.9 Cough, unspecified
CPT/HCPCS: 71046; 87428; 99282